=== PATIENT | male | born 1940 | race Caucasian/White ===

== ENCOUNTER 2023-12-12 12:52 | Outpatient (AMB) | payer MEDICARE, SELFPAY ==
--- NOTE | 2023-12-12 12:56 | A.OFFVIS_ITS ---
Intake Visit Reasons: benign neoplasm of bladder Intake Note: New Patient presents for initial visit for neoplasm of bladder Urology Medications: none Blood Thinner: warfarin Python Consultant Required: No Accompanied by: Self / Same As Patient Allergies levofloxacin Allergy (Verified 12/12/23 14:33) joint pain, swelling Medication List - Last Reconciled 12/12/23 by CHEPE Brown diazepam 5 mg PO DAILY PRN escitalopram oxalate 20 mg PO DAILY famotidine 40 mg PO DAILY pravastatin 80 mg PO DAILY prednisone 5 mg PO DAILY warfarin mg PO HPI Comments Details: Omi is a 83-year-old male patient of Dr. Fox. 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 He presents to the office today as a new patient for a history of bladder cancer. In discussion with the patient today he is extremely vague with previous previous urology history. However he discusses following up with previous urologist and being told he had something in his bladder however did not need to follow-up for 3-5 years. He discusses previous cystoscopy however does not recall much of previous history. When asked he does report urinary frequency however relates it to his increased p.o. intake and does not find it bothersome. He otherwise denies incontinence, nocturia, hematuria, dysuria, foul smelling urine, changes to urinary stream, flank pain, fever, and or chills. He is happy with his current voiding parameters. In office urinalysis results reviewed with the patient today microscopic hematuria noted. Discussed further workup to include CT urogram, urine cytology, and in office cystoscopy for further assessment evaluation. Patient discusses having had recent CT of the abdomen and pelvis and many other imaging at [facility] within the last 2-3 months. Discussed signing medical release form for continuity of care and to obtain radi ology results. When asked he does report a previous history smoking however states this was over 50 years ago in did not smoke many cigarettes daily. He otherwise offers no other issues or concerns at this time. 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, left wrist, 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, right wrist, without tophus (tophi) Rheumatoid arthritis, unspecified Paroxysmal tachycardia, unspecified Other specified heart block Hypertensive chronic kidney disease with stage 1 through stage 4 chronic kidney disease, or unspecified chronic kidney disease Male erectile dysfunction, unspecified Major depressive disorder, recurrent, moderate Nicotine dependence, cigarettes, in remission Mixed hyperlipidemia Vitamin D deficiency, unspecified Benign neoplasm of bladder Review of Systems Eyes Reports no additional complaints ENT Reports no additional complaints Card Reports as per HPI Resp Reports no additional complaints GI Reports no additional complaints Reports as per HPI Musc Reports no additional complaints Neuro Reports as per HPI Psych Reports as per HPI Endo Reports no additional complaints Catarino/Lymph Reports no additional complaints Aller/Immun Reports no additional complaints Physical Exam Const General: cooperative, comfortable, no acute distress, well developed, alert and awake Orientation/consciousness: patient oriented x3 Limitations: no limitations HEENT Head: Yes normal to inspection, Yes normocephalic and Yes atraumatic Ears: hearing grossly normal bilaterally Eyes General: appearance normal, both eyes and all related structures Neck Neck: Yes normal visual inspection and Yes trachea midline Chest Chest palpation & inspection: normal inspection of the chest Resp Effort & Inspection: normal respiratory effort and able to speak in complete sentences Cardio Rate: regular rate GI Inspection: Yes normal to inspection General: Yes no CVA tenderness Back/Spine/Pelvis Back: no CVA tenderness Skin General skin exam: no rashes or lesions noted Neuro General: patient oriented x3 Extrem General: Yes normal to inspection Psych Appearance: grossly normal and well kempt Mental Status: mental status grossly normal Speech and movement: Normal speech and movement present and Clear speech present Affect: normal affect Attitude: cooperative Thought process: Normal thought process present Thought content: Normal thought content present Insight: Fair insight present (Psych) Judgement: Fair judgement present (Psych) Results AMB Urinalysis, Automated UA Leukoctes 15 Nichole/uL Last Edit by Ara Gonzalez on 12/12/23 13:53 UA Nitrite Negative Last Edit by Ara Gonzalez on 12/12/23 13:53 UA Urobilinogen 0.2 mg/dL Last Edit by Ara Gonzalez on 12/12/23 13:53 UA Protein 30 mg/dL Last Edit by Ara Gonzalez on 12/12/23 13:53 UA pH 6.0 Last Edit by Ara Gonzalez on 12/12/23 13:53 UA Blood 10 Himanshu/uL Last Edit by Ara Gonzalez on 12/12/23 13:53 UA Specific [place] 1.020 Last Edit by Ara Gonzalez on 12/12/23 13:53 UA Ketone Positive Last Edit by Ara Gonzalez on 12/12/23 13:53 UA Bilirubin 1 mg/dL Last Edit by Ara Gonzalez on 12/12/23 13:53 UA Glucose 0 mg/dL Last Edit by Ara Gonzalez on 12/12/23 13:53 Results Reviewed Results Reviewed: Laboratory Last Values Urine pH (Auto) 6.0 12/12/23 13:52 Specific [place] (Auto) 1.020 12/12/23 13:52 Urine Protein (Auto) 30 mg/dL 12/12/23 13:52 Glucose (UA)(Auto) 0 mg/dL 12/12/23 13:52 Urine Ketones (Auto) Positive 12/12/23 13:52 Urine Blood (Auto) 10 Himanshu/uL 12/12/23 13:52 Urine Nitrite (Auto) Negative 12/12/23 13:52 Urine Bilirubin (Auto) 1 mg/dL 12/12/23 13:52 Urine Urobilinogen (Auto) 0.2 mg/dL 12/12/23 13:52 Leukocyte Esterase (Auto) 15 Nichole/uL 12/12/23 13:52 Assessment & Plan Assessment & Plan (1) Microscopic hematuria: Code(s): R31.29 - Other microscopic hematuria Category: Medical (2) History of nicotine dependence: Code(s): Z87.891 - Personal history of nicotine dependence Category: Medical Plan In office urinalysis results reviewed with the patient today; as noted above; will send for urine cytology. Medical release form signed will attempt to obtain previous CT records from [facility] Discussed at length potential causes of microscopic hematuria Discussed further microscopic hematuria workup; risks and benefits were discussed. Patient currently denies any bothersome urinary issues. He reports be happy with current voiding parameters. Will schedule for next available in office cystoscopy. Follow-up per doctor's orders; or sooner with any issues, concerns, and or qu estions. Orders: Orders AMB Urinalysis Automated Today Z13.9 - Encounter for screening, unspecified Urine Cytology Today R31.29 - Other microscopic hematuria Patient Instructions: The patient had an opportunity to ask questions regarding the treatment plan. All questions were answered. Physical exam, labs, and imaging were discussed and reviewed in detail. As well as risks, benefits, and discussion of treatment choices. No major barriers to understanding were identified. The patient expressed understanding and agreement with the above treatment plan. The patient was made aware they should contact our office by phone for worsening of their current condition, the appearance of new symptoms, or with any questions or concerns. Compliance is encouraged with any medications and follow up testing that is ordered. It is a privilege to be allowed the opportunity to participate in? your urological care.? Again, if you have any questions or concerns If you have any questions or concerns please do not hesitate to contact me. The office is [phone]. This note is constructed using voice recognition software. While every effort has been made to ensure accuracy church official errors may have been included. Yours sincerely, CHEPE Brown Coding Level of Care Code New Pt Level 3 (53727) Diagnoses Microscopic hematuria R31.29 History of nicotine dependence Z87.891
== END 2023-12-12 13:50 | disposition home or self-care (01) ==
PROVIDERS: PCP Internal Medicine; Visit Provider Nurse Practitioner Family
DX: R31.29 Other microscopic hematuria (principal); Z87.891 Personal history of nicotine dependence; Z13.9 Encounter for screening, unspecified
CPT/HCPCS: 99203

== ENCOUNTER 2023-12-12 12:52 | Outpatient (REF) | payer MEDICARE, SELFPAY ==
[2023-12-12 16:05] LABS: Urine Cytology See Pathology rpt
== END 2023-12-12 12:53 | disposition home or self-care (01) ==
LOC: HO.LNP 12:52
PROVIDERS: PCP Internal Medicine; Visit Provider Nurse Practitioner Family
DX: R31.29 Other microscopic hematuria (principal); Z87.891 Personal history of nicotine dependence
CPT/HCPCS: 81003; 88112; 99202

== ENCOUNTER 2024-03-26 09:59 | Outpatient (AMB) | payer MEDICARE, SELFPAY ==
--- NOTE | 2024-03-26 10:08 | MHC.OFFVIS ---
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 He is a patient of Dr. Fox. He is seen for the following urologic conditions - hematuria - erectile dysfunction Did have prior evaluation for hematuria a number of years ago Recent CT from [facility] reported as normal Cytology atypical cells Findings at cystoscopy - enlarged prostate with neovascularity Reassurance provided Bladder cancer superficial Previously managed in [place] - Prior smoking history Persistent microscopic hematuria Cytology atypical cells [facility] Medical History Panic disorder [episodic paroxysmal anxiety] Presence of prosthetic heart valve Personal history of colonic polyps 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 Nondisplaced fracture of base of third metacarpal bone, right hand, initial encounter for closed fracture Syncope and collapse Hematuria, unspecified Cyst of kidney, acquired Chronic kidney disease, stage 2 (mild) Idiopathic gout, 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, left wrist, 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, right wrist, without tophus (tophi) Rheumatoid arthritis, unspecified Paroxysmal tachycardia, unspecified Other specified heart block Hypertensive chronic kidney disease with stage 1 through stage 4 chronic kidney disease, or unspecified chronic kidney disease Male erectile dysfunction, unspecified Major depressive disorder, recurrent, moderate Nicotine dependence, cigarettes, in remission Mixed hyperlipidemia Vitamin D deficiency, unspecified Benign neoplasm of bladder Review of Systems Const Denies chills and Denies fever(s) Card Reports no additional complaints and Denies syncope Resp Denies cough GI Denies abdominal pain and Denies heartburn Reports as per HPI and Denies change in libido Neuro Denies syncope Psych Denies change in libido Endo Denies change in libido Physical Exam Const General: cooperative, healthy appearing, comfortable and no acute distress Orientation/consciousness: patient oriented x3 HEENT Face and sinus: Yes normal facial exam Mouth: moist mucous membranes Neck Neck: Yes normal visual inspection, Yes full ROM and Yes trachea midline Chest Chest palpation & inspection: normal inspection of the chest Resp Effort & Inspection: normal respiratory effort, able to speak in complete sentences and no respiratory distress GI Inspection: Yes normal to inspection Back/Spine/Pelvis Cervical Spine: normal cervical lordosis Thoracic/Lumbar Spine: thoracic and lumbar spine normal to inspection Skin General skin exam: no rashes or lesions noted Neuro General: patient oriented x3, gait normal, tone normal and moves all extremities Extrem General: Yes normal to inspection and Yes capillary refill normal Office Procedures Cystoscopy Consent Discussed risk and benefit or proposed procedure with the patient. Information consent for procedure given to the patient. Discussed technical aspects, risks, benefits and alternatives in full. Addressed all of the patient's questions and concerns regarding the procedure. The patient demonstrated knowledge and understanding. They wish to proceed with this procedure. Preparation The patient was prepped in the usual manner. A tractor crane engineer was present and in the room. Genitalia was prepped with betadine solution in a sterile manner. Lidocaine Jelly 2% was placed into the urethra and 16Fr flexible Olympus cystoscope was inserted into the meatus after adequate lubrication. Procedure Cystoscopy performed using a disposable Urovue digital 16 Macedonian cystoscope. 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 and bladder floor Bladder examination with retroflexion of cystoscope Bladder Orifices normal shape and position Bladder Capacity medium Trabeculations grade 2 Cellule Formation - Diverticulum Formation - Mucosal Erythema - Bladder Tumor - 98508-[id number] DISPOSABLE SCOPE URO-G FLEXIBLE SCOPE Procedure code (CPT) selection complete Office Meds lidocaine HCl 2 % mucosal jelly in applicator Performing Provider: Kristofer Wilburn MD [place] [facility] [place] [facility] Administered by: Kristofer Wilburn MD on 03/28/24 16:17 Dose Route Admin Location Dispensed Lot Number Expiration Date [facility] [place] Band Shover 10 mL intra-urethral 10 mL Results AMB Urinalysis, Automated UA Leukoctes 0 Nichloe/uL Last Edit by SALAZAR Linder on 03/26/24 10:24 UA Nitrite Negative Last Edit by SALAZAR Linder on 03/26/24 10:24 UA Urobilinogen 0.2 mg/dL Last Edit by SALAZAR Linder on 03/26/24 10:24 UA Protein 0 mg/dL Last Edit by SALAZAR Linder on 03/26/24 10:24 UA pH 6.0 Last Edit by SALAZAR Linder on 03/26/24 10:24 UA Blood 10 Himanshu/uL Last Edit by SALAZAR Linder on 03/26/24 10:24 UA Specific [place] 1.015 Last Edit by SALAZAR Linder on 03/26/24 10:24 UA Ketone Negative Last Edit by SALAZAR Linder on 03/26/24 10:24 UA Bilirubin 0 mg/dL Last Edit by SALAZAR Linder on 03/26/24 10:24 UA Glucose 0 mg/dL Last Edit by SALAZAR Linder on 03/26/24 10:24 Results Reviewed Results Reviewed: Laboratory Last Values Urine pH (Auto) 6.0 03/26/24 10:23 Specific [place] (Auto) 1.015 03/26/24 10:23 Urine Protein (Auto) 0 mg/dL 03/26/24 10:23 Glucose (UA)(Auto) 0 mg/dL 03/26/24 10:23 Urine Ketones (Auto) Negative 03/26/24 10:23 Urine Blood (Auto) 10 Himanshu/uL 03/26/24 10:23 Urine Nitrite (Auto) Negative 03/26/24 10:23 Urine Bilirubin (Auto) 0 mg/dL 03/26/24 10:23 Urine Urobilinogen (Auto) 0.2 mg/dL 03/26/24 10:23 Leukocyte Esterase (Auto) 0 Nichole/uL 03/26/24 10:23 Assessment & Plan Assessment & Plan (1) Microscopic hematuria: Code(s): R31.29 - Other microscopic hematuria Category: Medical Plan One year follow-up check UA Orders: Orders AMB Urinalysis Automated 03/26/24 Z13.9 - Encounter for screening, unspecified AMB Cystoscopy 03/26/24 R31.29 - Other microscopic hematuria Medications: New lidocaine HCl 2% 10 mL intra-urethral ONCE 10 mL 0RF R31.29 - Other microscopic hematuria Patient Instructions: Imaging studies, laboratory and physical exam results were discussed and reviewed in detail. No major barriers to patient understanding were identified. An opportunity to ask questions regarding the treatment plan was provided. All questions were answered. The patient expressed understanding and agreement with the above treatment plan. The patient is aware they should contact our office by phone for worsening of their current condition or the appearance of new urologic symptoms. Compliance is encouraged with any medications and followup testing that is ordered. It is a privilege to participate in the urologic care of your patient. If you have any questions or concerns regarding treatment for the above conditions, or other urologic issues, please do not hesitate to contact me. The office telephone contact is [phone]. This note is constructed using voice recognition software. While every effort has been made to ensure accuracy sizing machine operator errors may have been included. Yours sincerely, Dr Kristofer Wilburn MD, KAR[facility] - Urology Providers of Expert, Compassionate Care for the Genitourinary System Coding Level of Care Code Est Pt Level 3 (49790) Diagnoses Microscopic hematuria R31.29 CPT Codes Cystoscopy - CPT: 32413-[id number] ([id number])
--- OUTSIDE RECORDS SUMMARY | 2024-03-27 19:39 | XMS_ITS ---
Author Organization Crystal Fox MD Address [address] [place] [address] [phone] Care Team Providers Care Welder Apprentice Name Role Phone Crystal Fox Primary Care Provider REASON FOR VISIT referral GI Encounters Encounter Location Date Provider Diagnosis Crystal Fox MD [address] [place] [address] [place] [address] [phone] 01/30/2024 Crystal Fox Plan Of Treatment Next Appt Details Provider Name:Crystal Fox , 07/23/2024 11:30:00 AM, [address] [place] [address], [phone], Provider Name:Crystal Fox , 01/29/2025 11:00:00 AM, [address] [place] [address], [phone], Progress Notes * OSMEL SukhjindercarolDOB: 2 (83 yo M)Acc No.[id number]:01/30/2024 Patient:?Omi BOLIVAR :1940???Age:83 Y???Sex:Male Address:[facility] [place], [address] Subjective: * Chief Complaints: * ???referral GI * Medical History:? * Surgical History:? * Hospitalization/Major Diagno stic Procedure:? * Medications:? Objective: * Vitals:? Past Vitals:* 01/17/2024 Temp:98.7F, HR:86/min, BP:Si tting Right Arm: 120/70mm Hg, Wt:183lbs, BMI:24.82Index, Ht:6 ft, Oxygen sat %:98% * 10/09/2023 HR:102/min, BP:Sitting Right Arm:130/70mm Hg, Wt:186lbs, BMI:25.22Index, Ht:6 ft, Oxygen sat %:97% * 02/24/2023 Temp:97.1F, HR:103/min, BP: 140/82 mm Hg,Sitting Right Arm:122/78mm Hg, Wt:183.6lbs, BMI:24.90Index, Ht:6 ft, Oxygen sat %:96% * Physical Examination:? Assessment: Plan: * Treatment: * Procedure Codes:? * true * Date:? Generated for Kermit benitez/Paris/Olivia on:?03/27/2024 07:38 PM EST
--- OUTSIDE RECORDS SUMMARY | 2024-03-27 19:39 | XMS_ITS ---
Author Organization Crystal Fox MD Address [address] [place] [address] [phone] Care Team Providers Care Right Of Way Worker Name Role Phone Crystal Fox Primary Care Provider REASON FOR VISIT Coumadin Encounters Encounter Location Date Provider Diagnosis Crystal Fox MD [address] [place] [address] [place] [address] [phone] 03/21/2024 Crystal Fxo Plan Of Treatment Next Appt Details Provider Name:Crystal Fox , 07/23/2024 11:30:00 AM, [address] [place] [address], [phone], Provider Name:Crystal Fox , 01/29/2025 11:00:00 AM, [address] [place] [address], [phone], Progress Notes * Omi PINKDOB: 2 (83 yo M)Acc No.[id number]:03/21/2024 Patient:?OSMEL Omi :1940???Age:83 Y???Sex:Male Address:[place], [address] * true * Date:? Generated for Printi ng/Fachristineg/eTransmitting on:?03/27/2024 07:38 PM EST
--- OUTSIDE RECORDS SUMMARY | 2024-03-27 19:39 | XMS_ITS | Patient Health Record ---
Author Organization [facility] Address [address] [facility] [address] [place], [place] [id number] Care Team Providers Care Director Of Student Aid Name Role Phone [facility] Primary Care Provider Allergies Allergen (clinical drug ingredient) Drug/Non Drug Allergy documented on EMR Reaction Allergy Type Onset Date Status levofloxacin Levofloxacin Joint Pain, Swelling Drug Allergy Active Results Component Value Reference Range Notes HCV Antibody-[id number] Reviewed date:01/19/2024 01:54:37 PM Interpretation: Performing Lab:[facility] [place], [employer] [facility], Phone - [phone], Director - MDJarrelly Notes/Report: Hep C Virus Ab Non Reactive Non Reactive HCV antibody alone does not differentiate between previously resolved infection and active infection. Equivocal and Reactive HCV antibody results should be followed up with an HCV RNA test to support the diagnosis of active HCV infection. LP+Non-HDL Cholesterol-80078 5 Reviewed date:01/19/2024 01:54:37 PM Interpretation: Performing Lab:[facility] [place], [employer] [facility], Phone - [phone], Director - MDCodiedry Notes/Report: Cholesterol, Total 179 100-199 mg/dL Triglycerides 111 0-149 mg/dL HDL Cholesterol 63 >39 mg/dL VLDL Cholesterol Vinay 20 5-40 mg/dL LDL Chol Calc (NIH) 96 0-99 mg/dL Non-HDL Cholesterol 116 0-129 mg/dL Comp. Metabolic Panel (14)-3 Reviewed date:01/19/2024 01:54:37 PM Interpretation: Performing Lab:[facility] [place], [employer] [facility], Phone - [phone], Director - Parviny Notes/Report: Glucose 72 70-99 mg/dL BUN 18 8-27 mg/dL Creatinine 1.03 0.76-1.27 mg/dL eGFR 73 >59 mL/min/1.73 BUN/Creatinine Ratio 17 10-24 Sodium 138 134-144 mmol/L Potassium 4.2 3.5-5.2 mmol/L Chloride 101 96-106 mmol/L Carbon Dioxide, Total 25 20-29 mmol/L Calcium 9.2 8.6-10.2 mg/dL Protein, Total 6.6 6.0-8.5 g/dL Albumin 3.7 3.7-4.7 g/dL Globulin, Total 2.9 1.5-4.5 g/dL Bilirubin, Total 0.4 0.0-1.2 mg/dL Alkaline Phosphatase 67 44-121 IU/L AST (SGOT) 25 0-40 IU/L ALT (SGPT) 13 0-44 IU/L Albumin/Creatinine Ratio,Uri ne-[id number] Reviewed date:01/19/2024 01:54:37 PM Interpretation: Performing Lab:[facility], [address] [facility], Phone - [phone], Director - [facility] Notes/Report: Creatinine, Urine 102.8 Not Estab. mg/dL Albumin, Urine <3.0 Not Estab. ug/mL Alb/Creat Ratio <3 0-29 mg/g creat Normal: 0 - 29 Moderately increased: 30 - 300 Severely increased: >300 Vitamin D, 52-Kynuijn-999531 Reviewed date:01/19/2024 01:54:37 PM Interpretation: Performing Lab:[facility] [place], [address] [facility], Phone - [phone], Director - [facility] Notes/Report: Vitamin D, 25-Hydroxy 68.0 30.0-100.0 ng/mL Vitamin D deficiency has been defined by the Poth of Medicine and an Endocrine Society practice guideline as a level of serum 25-OH vitamin D less than 20 ng/mL (1,2). The Endocrine Society went on to further define vitamin D insufficiency as a level between 21 and 29 ng/mL (2). 1. IOM (Poth of Medicine). 2010. Dietary reference intakes for calcium and D. [place]: The National Academies Press. 2. Joanne MF, Jeni GALLEGOS, Art CISNEROS, et al. Evaluation, treatment, and prevention of vitamin D deficiency: an Endocrine Society clinical practice guideline. JCEM. 2010; 96(6):1911-30. Prostate-Specific Ag-[id number] Reviewed date:01/19/2024 01:54:37 PM Interpretation: Performing Lab:[facility] [place], [address] [place] [address], Phone - [phone], Director - Vaughn Notes/Report: Prostate Specific Ag 0.4 0.0-4.0 ng/mL Duglas ECLIA methodology. . According to the [place] [employer], Serum PSA should decrease and remain at undetectable levels after radical prostatectomy. The AUA defines biochemical recurrence as an initial PSA value 0.2 ng/mL or greater followed by a subsequent confirmatory PSA value 0.2 ng/mL or greater. Values obtained with different assay methods or kits cannot be used interchangeably. Results cannot be interpreted as absolute evidence of the presence or absence of malignant disease. CBC With Differential/Platel et-[id number] Reviewed date:01/19/2024 01:54:37 PM Interpretation: Performing Lab:[facility] [place], [address] [facility], [place], Phone - [phone], Director - Vaughn Notes/Report: WBC 8.4 3.4-10.8 x10E3/uL RBC 4.87 4.14-5.80 x10E6/uL Hemoglobin 14.1 13.0-17.7 g/dL Hematocrit 44.4 37.5-51.0 % MCV 91 79-97 fL MCH 29.0 26.6-33.0 pg MCHC 31.8 31.5-35.7 g/dL RDW 13.7 11.6-15.4 % Platelets 260 150-450 x10E3/uL Neutrophils 77 Not Estab. % Lymphs 13 Not Estab. % Monocytes 9 Not Estab. % Eos 1 Not Estab. % Basos 0 Not Estab. % Neutrophils (Absolute) 6.4 1.4-7.0 x10E3/uL Lymphs (Absolute) 1.1 0.7-3.1 x10E3/uL Monocytes(Absolute) 0.8 0.1-0.9 x10E3/uL Eos (Absolute) 0.1 0.0-0.4 x10E3/uL Baso (Absolute) 0.0 0.0-0.2 x10E3/uL Immature Granulocytes 0 Not Estab. % Immature Grans (Abs) 0.0 0.0-0.1 x10E3/uL Urinalysis, Complete-[id number] Reviewed date:01/19/2024 01:54:37 PM Interpretation: Performing [facility] [place], [address] [place] [address], Phone - [phone], Director - Vaughn Notes/Report: Specific [place] 1.016 1.005-1.030 pH 6.5 5.0-7.5 Urine-Color Yellow Yellow Appearance Clear Clear WBC Esterase Negative Negative Protein Negative Negative/Trace Glucose Negative Negative Ketones Negative Negative Occult Blood Negative Negative Bilirubin Negative Negative Urobilinogen,Semi-Qn 0.2 0.2-1.0 mg/dL Nitrite, Urine Negative Negative Microscopic Examination Micr oscopic follows if indicated. Microscopic Examination See below: Micr oscopic was indicated and was performed. WBC None seen 0 - 5 /hpf RBC 0-2 0 - 2 /hpf Epithelial Cells (non renal) None seen 0 - 10 /hpf Casts None seen None seen /lpf Bacteria None seen None seen/Few Uric Acid-[id number] Reviewed date:01/19/2024 01:54:37 PM Interpretation: Performing Lab:[facility] [place], Phone - [phone], Director - Vaughn Notes/Report: Uric Acid 4.9 3.8-8.4 mg/dL Therapeutic ta rget for gout patients: <6.0 Prothrombin Time (PT)-347918 Reviewed date:03/21/2024 04:55:29 PM Interpretation: Performing Lab:[facility] [place], Phone - [phone], Director - Parviny Notes/Report: INR 2.7 0.9-1.2 Reference interval is for non-anticoagulated patients. . Suggested INR therapeutic range for Vitamin K antagonist therapy: Standard Dose (moderate intensity therapeutic range): 2.0 - 3.0 Higher intensity therapeutic range 2.5 - 3.5 Prothrombin Time 27.6 9.1-12.0 sec Prothrombin Time (PT)-920212 Reviewed date:01/19/2024 01:54:37 PM Interpretation: Performing Lab:[facility] [place] [address] [facility], [place], Phone - [phone], Director - Vaughn Notes/Report: INR 3.3 0.9-1.2 Reference interval is for non-anticoagulated patients. . Suggested INR therapeutic range for Vitamin K antagonist therapy: Standard Dose (moderate intensity therapeutic range): 2.0 - 3.0 Higher intensity therapeutic range 2.5 - 3.5 Prothrombin Time 32.7 9.1-12.0 sec CITRULLINE PEPTIDE ANTIBODY Reviewed date:04/21/2023 04:17:48 PM Interpretation: Performing Lab:Testing performed or reported by [facility], a Service of [facility], [address] [place] [address] Remi Dave MD, Test Administrator [facility]# [id number] Notes/Report: CCP ANTIBODY 6 Reference range: 0 to 19 Unit: units (NOTE) Negative <20 Weak positive 20 - 39 Moderate positive 40 - 59 Strong positive >59 Test performed by [facility], [address] [place] [address] COMPLETE CBC WITH DIFF Reviewed date:04/21/2023 04:17:48 PM Interpretation: Performing Lab:Testing performed or reported by [facility], a Service of [facility], [address] [place] [address] Remi Dave MD, Test Administrator [facility]# [id number] Notes/Report: WBC 13.1 (4.0-11.0) K/MM3 RBC 5.30 (4.70-6.10) M/MM3 HGB 15.4 (13.7-17.1) GM/DL HCT 49.0 (40.5-50.0) % MCV 92.5 (80.0-94.0) FL MCH 29.1 (27.0-34.0) PG MCHC 31.4 (33.0-37.0) g/dL PLT 303 (150-460) K/MM3 RDW-SD 50.5 (<47.0) FL MPV 10.2 (9.4-12.4) FL AUTOMATED NRBC 0.0 ABS. NRBC 0.0 NEUT # 11.7 (1.3-7.0) K/MM3 LYMPH # 0.9 (0.8-3.1) K/MM3 MONO# 0.3 (0.4-1.3) K/MM3 EO # 0.0 (0.0-0.4) K/MM3 BASO # 0.0 (0.0-0.1) K/MM3 ABS. IMM GRAN 0.1 NEUT 89.9 (44-76) % LYMPH 6.7 (15-43) % MONOCYTE 2.5 (4.5-10.5) % EO 0.2 (0-6) % BASO 0.2 (0-2) % IMM GRAN 0.5 COMPREHENSIVE METABOLIC PANE L Reviewed date:04/21/2023 04:17:48 PM Interpretation: Performing Lab:Testing performed or reported by [facility], a Service of [facility], [address] [place] [address] Remi Dave MD, Test Administrator [facility]# [id number] Notes/Report: GLUCOSE 101 (70-99) MG/DL BUN 18 (8-23) MG/DL CREATININE 1.0 (0.7-1.2) MG/DL SODIUM 139 (133-145) MMOL/L POTASSIUM 5.2 (3.6-5.2) MMOL/L CHLORIDE 100 (98-107) MMOL/L BICARBONATE 31 (22-29) MMOL/L ANION GAP 8 (4-17) ALBUMIN 4.2 (3.4-4.8) GM/DL CALCIUM 9.6 (8.6-10.5) MG/DL BILIRUBIN,TOTAL 0.4 (0-1.2) MG/DL TOTAL PROTEIN 7.0 (6.2-8.2) GM/DL AG RATIO 1.5 AST 41 (0-40) U/L ALK PHOS 72 (40-129) U/L ALT 33 (0-41) U/L ESTIMATED GFR CREATININE 78 Creatinine based estimated glomerular filtration (eGFR) in adults is calculated using the National Kidney Foundation recommended 2020 CKD-EPI equation. Estimates GFR from serum creatinine, age and sex. C-REACTIVE PROTEIN Reviewed date:04/21/2023 04:17:48 PM Interpretation: Performing Lab:Testing performed or reported by [facility], a Service of [address] [address] Remi Dave MD, Test Administrator [facility]# [id number] Notes/Report: C-REACTIVE PROTEIN 0.3 (0-0.5) MG/DL RHEUMATOID FACTOR Reviewed date:04/21/2023 04:17:48 PM Interpretation: Performing Lab:Testing performed or reported by [facility], a Service of [facility], [address] [place] [address] Remi Dave MD, Test Administrator [facility]# [id number] Notes/Report: RHEUMATOID FACTOR 10.0 (<14) IU/ML MARII Reviewed date:04/21/2023 04:17:48 PM Interpretation: Performing Lab:Testing performed or reported by [facility], a Service of [facility], [address] [place] [address] Remi Dave MD, Test Administrator [place]# [id number] Notes/Report: ANTI-NUCLEAR ANTIBODY SCREEN NEGATIVE (NOTE) Negative <1:80 Borderline 1:80 Positive >1:80 ICAP nomenclature: AC-0 For more information about Hep-2 cell patterns use ANApatterns.org, the official website for the International Consensus on Antinuclear Antibody (MARII) Patterns (ICAP). Test performed by [facility], [address] [facility], [place] [address] DR Mcneil Routine 2 Views Reviewed date:11/14/2023 07:17:00 AM Interpretation: Performing Lab: Notes/Report: Original Ordering Provider: CRYSTAL IRVING MD [facility] Uric Acid-[id number] Reviewed date:11/14/2023 07:17:00 AM Interpretation: Performing Lab:[facility], [address] [place] [address], [place], Phone - [phone], Director - Vaughn Notes/Report: Uric Acid 3.7 3.8-8.4 mg/dL Therapeutic ta rget for gout patients: <6.0 Urinalysis, Complete-[id number] Reviewed date:11/14/2023 07:17:00 AM Interpretation: Performing Lab:[facility] [place], [address] [place] [address], [place], Phone - [phone], Director - Vaughn Notes/Report: Specific [place] 1.005 1.005-1.030 pH 6.5 5.0-7.5 Urine-Color Yellow Yellow Appearance Clear Clear WBC Esterase Negative Negative Protein Negative Negative/Trace Glucose Negative Negative Ketones Negative Negative Occult Blood Negative Negative Bilirubin Negative Negative Urobilinogen,Semi-Qn 0.2 0.2-1.0 mg/dL Nitrite, Urine Negative Negative Microscopic Examination Micr oscopic follows if indicated. Microscopic Examination See below: Micr oscopic was indicated and was performed. WBC None seen 0 - 5 /hpf RBC 0-2 0 - 2 /hpf Epithelial Cells (non renal) None seen 0 - 10 /hpf Casts None seen None seen /lpf Bacteria None seen None seen/Few CBC With Differential/Platel et-[id number] Reviewed date:11/14/2023 07:17:01 AM Interpretation: Performing Lab:[facility] [place], [address] [facility], Phone - [phone], Director - minerva Notes/Report: WBC 11.5 3.4-10.8 x10E3/uL RBC 4.95 4.14-5.80 x10E6/uL Hemoglobin 14.4 13.0-17.7 g/dL Hematocrit 46.2 37.5-51.0 % MCV 93 79-97 fL MCH 29.1 26.6-33.0 pg MCHC 31.2 31.5-35.7 g/dL RDW 13.0 11.6-15.4 % Platelets 343 150-450 x10E3/uL Neutrophils 88 Not Estab. % Lymphs 6 Not Estab. % Monocytes 3 Not Estab. % Eos 2 Not Estab. % Basos 0 Not Estab. % Neutrophils (Absolute) 10.1 1.4-7.0 x10E3/uL Lymphs (Absolute) 0.7 0.7-3.1 x10E3/uL Monocytes(Absolute) 0.4 0.1-0.9 x10E3/uL Eos (Absolute) 0.3 0.0-0.4 x10E3/uL Baso (Absolute) 0.0 0.0-0.2 x10E3/uL Immature Granulocytes 1 Not Estab. % Immature Grans (Abs) 0.1 0.0-0.1 x10E3/uL Sedimentation Rate-[place] n-[id number] Reviewed date:11/14/2023 07:17:01 AM Interpretation: Performing Lab:[facility] [place], [address] [facility], [place], Phone - [phone], Director - Vaughn Notes/Report: Sedimentation Rate-[place] 45 0-30 mm/hr C-Reactive Protein, Quant-00 6627 Reviewed date:11/14/2023 07:17:01 AM Interpretation: Performing Lab:[facility] [place], [address] [place] [address], Phone - [phone], Director - Vaughn Notes/Report: C-Reactive Protein, Quant 28 0-10 mg/L Vitamin D, 27-Nsppiqa-[id number] Reviewed date:11/14/2023 07:17:01 AM Interpretation: Performing Lab:[facility] [place], [address] [place] [address], Phone - [phone], Director - Vaughn Notes/Report: Vitamin D, 25-Hydroxy 61.1 30.0-100.0 ng/mL Vitamin D deficiency has been defined by the Poth of Medicine and an Endocrine Society practice guideline as a level of serum 25-OH vitamin D less than 20 ng/mL (1,2). The Endocrine Society went on to further define vitamin D insufficiency as a level between 21 and 29 ng/mL (2). 1. IOM (Poth of Medicine). 2010. Dietary reference intakes for calcium and D. [place]: The National Academies Press. 2. Joanne MF, Jeni [place], Art CISNEROS, et al. Evaluation, treatment, and prevention of vitamin D deficiency: an Endocrine Society clinical practice guideline. JCEM. 2010; 96(7):1911-30. Albumin/Creatinine Ratio,Uri ne-876300 Reviewed date:11/14/2023 07:17:01 AM Interpretation: Performing Lab:[facility] [place], [address] [place] [address], Phone - [phone], Director - Vaughn Notes/Report: Creatinine, Urine 48.7 Not Estab. mg/dL Albumin, Urine 6.1 Not Estab. ug/mL Alb/Creat Ratio 13 0-29 mg/g creat Normal: 0 - 29 Moderately increased: 30 - 300 Severely increased: >300 B-Type Natriuretic Peptide-1 52707 Reviewed date:11/14/2023 07:17:01 AM Interpretation: Performing Lab:[facility] [place], [address] [place] [address], Phone - [phone], Director - Vaughn Notes/Report: B-Type Natriuretic Peptide 92.2 0.0-100.0 pg/m L [employer]ens ADVIA Centaur XP methodology Comp. Metabolic Panel (14)-3 01800 Reviewed date:11/14/2023 07:17:01 AM Interpretation: Performing Lab:[facility] [place], [address] [facility], [place], Phone - [phone], Director - Vaughn Notes/Report: Glucose 94 70-99 mg/dL BUN 17 8-27 mg/dL Creatinine 0.98 0.76-1.27 mg/dL eGFR 77 >59 mL/min/1.73 BUN/Creatinine Ratio 17 10-24 Sodium 140 134-144 mmol/L Potassium 4.5 3.5-5.2 mmol/L Chloride 102 96-106 mmol/L Carbon Dioxide, Total 25 20-29 mmol/L Calcium 9.5 8.6-10.2 mg/dL Protein, Total 6.9 6.0-8.5 g/dL Albumin 3.6 3.7-4.7 g/dL Globulin, Total 3.3 1.5-4.5 g/dL Bilirubin, Total 0.4 0.0-1.2 mg/dL Alkaline Phosphatase 77 44-121 IU/L AST (SGOT) 24 0-40 IU/L ALT (SGPT) 14 0-44 IU/L PDF Report Reviewed date:11/14/2023 07:17:01 AM Interpretation: Performing Lab:[facility], [address], [place], Phone - [phone], Director - Vaughn Notes/Report: CT Chest WO Reviewed date:11/14/2023 07:17:00 AM Interpretation: Performing Lab: Notes/Report: Original Ordering Provider: CRYSTAL IRVING MD [facility] PROTIME PROFILE Reviewed date:04/21/2023 04:17:48 PM Interpretation: Performing Lab:Testing performed or reported by [facility], a Service of [facility], [address] [place] [address] Remi Dave MD, Test Administrator [facility]# [id number] Notes/Report: PROTIME 28.3 (9.2-11.4) SEC INTERNATNL NORMALIZED RATIO 2.9 (0.9-1.1) SUGGESTED VALUE OF 2.0-3.0 FOR PROPHYLAXIS OF VENOUS THROMBOSIS IN HIGH RISK OR SURGICAL PATIENTS, TREATMENT OF VENOUS THROMBOSIS, AND PREVENTION OF EMBOLISM. SUGGESTED VALUES OF 2.5-3.5 FOR PREVENTION OF RECURRENT EMBOLISM OR PATIENTS WITH MECHANICAL PROSTHETIC HEART VALVES. PDF Report Reviewed date:09/26/2023 08:31:50 AM Interpretation: Performing Lab:[facility] [place], [address] [facility], [place], Phone - [phone], Director - Vaughn Notes/Report: Prothrombin Time (PT)-632100 Reviewed date:09/26/2023 08:31:50 AM Interpretation: Performing Lab:[facility] [place], [address] [facility], [place], Phone - [phone], Director - Vaughn Notes/Report: INR 2.4 0.9-1.2 Reference interval is for non-anticoagulated patients. . Suggested INR therapeutic range for Vitamin K antagonist therapy: Standard Dose (moderate intensity therapeutic range): 2.0 - 3.0 Higher intensity therapeutic range 2.5 - 3.5 Prothrombin Time 24.0 9.1-12.0 sec PDF Report Reviewed date:07/20/2023 08:16:15 AM Interpretation: Performing Lab:[facility], [address] [place] [address], Phone - [phone], Director - Ashley Notes/Report: Prothrombin Time (PT)-159011 Reviewed date:07/20/2023 08:16:15 AM Interpretation: Performing Lab:[facility], [address] [place] [address], Phone - [phone], Director - Ashley Notes/Report: INR 3.1 0.9-1.1 Prothrombin Time 30.3 9.2-11.4 SEC Reason For Referral Reason faxed Diagnosis 1 Rheumatoid arthritis , unspecified (M06.9) Referral Organization [facility] Referring Provider First Name Crystal Referring Provider Last Name Ruddy Referring Provider Speciality Internal edicine Referred Provider Chriss Hernandez Referred Provider Specialty Rheumatology General Notes Ketty BAKER 09/15 08:45:30 AM >faxedOLIVIA Brooke R 09/29/2023 02:02:17 PM > refaxedOLIVIA Brooke R 10/05/2023 03:09:30 PM > [facility] patient Referral Priority Routine Referral Appointment Date 12/05/2023 Reason faxed Diagnosis 1 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) Referral Organization [facility] Referring Provider First Name Crystal Referring Provider Last Name Ruddy Referring Provider Speciality Internal M edicine Referred Provider Kristofer Wilburn Referred Provider Specialty Urology General Notes MICHELDAJAKetty William 09/16 10:49:33 AM >faxed, OLIVIAPauline Meredith 10/17/2023 02:52:35 PM >[phone] Meredith 11/02/2023 03:33:03 PM > LM ON VM, MICHELCASSYPauline Meredith 11/02/2023 03:38:11 PM > PATIENT HAS APPT 12/12/2023 AT 1;00 PM WITH JAMIL His first appointment he was a no show spoke to Hui Referral Priority Routine Referral Appointment Date 12/12/2023 Reason faxed Diagnosis 1 Personal history of adenomatous and serrated colon polyps (Z86.0101) Referral Organization [facility] Referring Provider First Name Crystal Referring Provider Last Name Ruddy Referring Provider Speciality Internal M edicine Referred Provider Mitch Stoner Referred Provider Specialty Gastroentero logy General Notes LOIVIAKetty 05/2023 01:37:56 PM >faxed Referral Priority Routine Medications Medication SIG (Take, Route, Frequency, Duration) Notes Start Date End Date Status Escitalopram Oxalate 20 MG Take 1 tablet by mouth once daily Orally Once a day for 30 days Active diazePAM 5 MG 1 tablet Orally Once a day for 30 days 03/07/2024 Active Pravastatin Sodium 80 MG Take 1 tablet b y mouth once daily Orally Once a day for 30 days Active Warfarin Sodium 5 MG Take 2 tablets by m out once daily for 76 Active Metoprolol Succinate ER 25 MG 1 tablet Orally Once a day for 90 days 10/24/2022 Active Amoxicillin 500 MG 4 capsule Orally Onc e a day for 1 dose 05/07/2021 Not-Taking Famotidine 40 MG Take 1 tablet by jacques th once daily for 30 days Active Immunizations Vaccine Route Administration Date Status Comme nts *Influenza, High Dose Seasonal, Quadrivatent Unknown 01/26/2022 Administered *Influenza, High Dose Seasonal, Quadrivatent IM Intramuscular 01/09/2023 Administered *Gjwmhkrzs-Jcgowxr-Adfx Dose-65+ IM Intramuscular 01/17/2024 Administered *PREVNAR 20 IM Intramuscular 01/17/2024 Administered COVID COMIRNATY Pfizer Unknown 04/25/2023 Administered COVID-19 Pfizer BiValent Booster Unknown 02/15/2022 Administered QLKQI-49-Zhqnvy Vaccine Unknown 08/12/2020 Administered DXQLI-47-Oegxns Vaccine Unknown 09/02/2020 Administered RVGZF-16-Opivkr Vaccine Unknown 03/05/2021 Administered Influenza IM Intramuscular 01/28/2016 Administered Influenza Unknown 01/07/2020 Administered Influenza (Fluad) Unknown 02/25/2021 Administered Noqpeklag-Nuzd-3902-2020-F lucelvax IM Intramuscular 01/21/2019 Administered Pneumococcal polysaccharide PCV 13 Unknown 06/26/2014 Administered Pneumococcal polysaccharide PPV23 Unknown 04/17/1998 Administered Pneumococcal polysaccharide PPV23 Unknown 08/27/2012 Administered Td (adult) preservative free Unknown 02/27/2012 Administered Td (adult) preservative free IM Intramuscular 12/29/2021 Administered Social History Tobacco Use: Social History Observation Description Date Details (start date - stop date) Never Smoker NA - NA AUDIT-C (Standard) Question Answer Notes Did you have a drink contain ing alcohol in the past year? Yes How often did you have six o r more drinks on one occasion in the past year? Less than monthly (1 point) How many drinks did you have on a typical day when you were drinking in the past year? 1 or 2 drinks (0 point) How often did you have a dri nk containing alcohol in the past year? 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 Problem Vitamin D deficiency (43044791) Vitamin D deficiency, unspecified (E55.9) Active confirmed Problem Mixed hyperlipidemia (307935263) Mixed hyperlipidemia (E78.2) Active confirmed Problem Tobacco user (019909856) Nicotine dependence, cigarettes, 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) Active confirmed Problem Moderate recurrent major depression (45181949) Major depressive disorder, recurrent, moderate (F33.1) Active confirmed Problem Psychosexual dysfunction associated with inhibited sexual excitement (937735928605794) Male erectile disorder (F52.21) Active confirmed Problem Chronic kidney disease due to hypertension (183111052587511) Hypertensive chronic kidney disease with stage 1 through stage 4 chronic kidney disease, or unspecified chronic kidney disease (I12.9) Active confirmed Problem Heart block (496029730) Other specified heart block (I45.5) Active confirmed Problem Paroxysmal tachycardia (98031371) Paroxysmal tachycardia, unspecified (I47.9) Active confirmed Problem Chronic gouty arthritis (66322500) Chronic gout due to renal impairment, right wrist, 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) Active confirmed Problem Chronic gouty arthritis (77491502) Chronic gout due to renal impairment, left wrist, without tophus (tophi) (M1A.3320) Active confirmed Problem Idiopathic gout (54238283) Idiopathic gout, 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) Active confirmed Problem Chronic kidney disease stage 2 (025566145) Chronic kidney disease, stage 2 (mild) (N18.2) Active confirmed Problem 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, 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) Active confirmed Problem Hematuria (73219192) Hematuria, unspecified (R31.9) Active confirmed Problem Syncope and collapse (586074381) Syncope and collapse (R55) Active confirmed Problem Nondisplaced fracture of base of third metacarpal bone, right hand, initial encounter for closed fracture (S62.342A) Active confirmed Problem 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 (718256676) 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) Active confirmed Problem History of heart valve repair with prosthesis (217848796552422) 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) Active confirmed Problem Panic disorder (220029692) Panic disorder [episodic paroxysmal anxiety] (F41.0) Active confirmed Problem Vascular dementia, mild, with mood disturbance (F01.A3) Active confirmed Problem Ventricular tachycardia (disorder) (17599292) Ventricular tachycardia, unspecified (I47.20) Active confirmed Problem Aneurysm of ascending aorta (disorder) (324561934) Aneurysm of the ascending aorta, without rupture (I71.21) Active confirmed Problem Personal history of adenomatous and serrated colon polyps (Z86.0101) Active confirmed Problem Rheumatoid arthritis (01860511) Rheumatoid arthritis without rheumatoid factor, multiple sites (M06.09) Inactive confirmed Problem COVID19 JUAN-Viru s Identified (U07.1) Problem resolved confirmed Vital Signs Heart Rate 86 /min 01/17/2024 Temperature 98.7 degrees Fahrenheit 01/17/2024 Oximetry 98 % 01/17/2024 Blood pressure diastolic 70 mm Hg 01/17/2024 Height 6 ft in 01/17/2024 Blood pressure systolic 120 mm Hg 01/17/2024 Weight 183 lbs 01/17/2024 BMI 24.82 kg/m2 01/17/2024 Encounters Encounter Location Date Provider Diagnosis Crystal Irving MD [address] [id number] 05/29/2023 Crystal Irving MD [address] [id number] 10/09/2023 Crystal Irving Hypertensive chronic kidney disease with stage 1 through stage 4 chronic kidney disease, or unspecified chronic kidney disease I12.9 ; Chronic kidney disease, stage 2 (mild) N18.2 ; Panic disorder [episodic paroxysmal anxiety] F41.0 ; Major depressive disorder, recurrent, moderate F33.1 ; Aneurysm of the ascending aorta, without rupture I71.21 ; Mixed hyperlipidemia E78.2 ; Presence of prosthetic heart valve Z95.2 ; 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 ; Vitamin D deficiency, unspecified E55.9 ; Nicotine dependence, cigarettes, 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 and Rheumatoid arthritis without rheumatoid factor, multiple sites M06.09 Crystal Irving MD [address] [id number] 01/17/2024 Crystal Irving Hypertensive chronic kidney disease with stage 1 through stage 4 chronic kidney disease, or unspecified chronic kidney disease I12.9 ; Encounter for general adult medical examination without abnormal findings Z00.00 ; Chronic kidney disease, stage 2 (mild) N18.2 ; Panic disorder [episodic paroxysmal anxiety] F41.0 ; Major depressive disorder, recurrent, moderate F33.1 ; Aneurysm of the ascending aorta, without rupture I71.21 ; Presence of prosthetic heart valve Z95.2 ; 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 ; Mixed hyperlipidemia E78.2 ; Personal history of adenomatous and serrated colon polyps Z86.0101 ; Nicotine dependence, cigarettes, 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 ; Vitamin D deficiency, unspecified E55.9 ; Encounter for screening for malignant neoplasm of colon Z12.11 ; Encounter for screening for malignant neoplasm of prostate Z12.5 ; Encounter for screening for cardiovascular disorders Z13.6 ; Encounter for antibody response examination Z01.84 ; Encounter for immunization Z23 ; Encounter for screening for other viral diseases Z11.59 ; Low back pain, unspecified M54.50 and Chronic gout due to renal impairment, left wrist, 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 Crystal Irving MD [address] [place] [address] [id number] 03/30/2023 Crystal Irving Acute cough R05.1 Crystal Irving MD [address] [place] [address] [id number] 04/13/2023 Crystal Irving Presence of prosthet ic heart valve Z95.2 Crystal Irving MD [address] [place] [address] [id number] 04/13/2023 Crystal Irving MD [address] [place] [address] [id number] 04/20/2023 Crystal Irving MD [address] [place] [address] [id number] 05/10/2023 Crystal Irving MD [address] [place] [address] [id number] 06/12/2023 Crystal Irving MD [address] [place] [address] [id number] 06/14/2023 Crystal Irving MD [address] [place] [address] [id number] 06/22/2023 Crystal Irving MD [address] [place] [address] [id number] 07/20/2023 Crystal Irving MD [address] [place] [address] [id number] 07/27/2023 Crystal Irving MD [address] [place] [address] [id number] 09/11/2023 Crystal Irving MD [address] [place] [address] [id number] 09/25/2023 Crystal Irving Rheumatoid arthritis , unspecified M06.9 Crystal Irving MD [address] [place] [address] [id number] 09/26/2023 Crystal Irving MD [address] [place] [address] [id number] 11/10/2023 Crystal Irving MD [address] [facility] [address] [place] [address] [id number] 11/13/2023 Crystal Irving MD [address] [facility] [address] [place] [address] [id number] 12/12/2023 Crystal Irving MD [address] [id number] 01/19/2024 Crystal Irving MD [address] [id number] 01/30/2024 Crystal Irving MD [address] [id number] 02/29/2024 Crystal Irving MD [address] [id number] 03/21/2024 Crystal Irving Assessments Encounter Date Diagnosis (ICD Code) Assessment Notes Treatment Notes Treatment Clinical Notes Section Notes 03/30/2023 Acute cough (ICD-10 - R05.1) 09/25/2023 Rheumatoid arthritis, unspecified (ICD-10 - M06.9) 01/17/2024 Hypertensive chronic kidney disease with stage 1 through stage 4 chronic kidney disease, or unspecified chronic kidney disease (ICD-10 - I12.9) He is off his EVELIO inhibitor and his blood pressure is stable. Can continue to monitor. 01/17/2024 Encounter for general adult medical examination without abnormal findings (ICD-10 - Z00.00) General healthcare up-to-date. Check routine labs. Health care proxy and MOLST form package given for review and completion 10/09/2023 Hypertensive chronic kidney disease with stage 1 through stage 4 chronic kidney disease, or unspecified chronic kidney disease (ICD-10 - I12.9) Stable at present. Continue current therapy 10/09/2023 Chronic kidney disease, stage 2 (mild) (ICD-10 - N18.2) Stable estimated GFR in the 80s. 04/13/2023 Presence of prosthetic heart valve (ICD-10 - Z95.2) 10/09/2023 Panic disorder [episodic paroxysmal anxiety] (ICD-10 - F41.0) Not ideally controlled. He has not had behavioral health. He does not feel he needs behavioral health therapy. 01/17/2024 Chronic kidney disease, stage 2 (mild) (ICD-10 - N18.2) Stable estimated GFR in the 80s. Continue control comorbidity of hypertension 01/17/2024 Panic disorder [episodic paroxysmal anxiety] (ICD-10 - F41.0) Fair control at present. Ideally he should have combination therapy but he finds combination therapy cost prohibitive. 10/09/2023 Major depressive disorder, recurrent, moderate (ICD-10 - F33.1) Fair control. As above. He does not wish to have adjunct therapy added onto his current medical therapy due to cost issues. 10/09/2023 Aneurysm of the ascending aorta, without rupture (ICD-10 - I71.21) It appears he did not get his CT of the chest last year. Recommend CT angiogram of the chest to evaluate his aortic aneurysm. 01/17/2024 Major depressive disorder, recurrent, moderate (ICD-10 - F33.1) Fair control and as above. 01/17/2024 Aneurysm of the ascending aorta, without rupture (ICD-10 - I71.21) Stable on recent CAT scans. It is at 5.0 cm for this year. Continue to monitor on a periodic basis 10/09/2023 Mixed hyperlipidemia (ICD-10 - E78.2) Fair control on prior labs as reviewed. 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 He is cystoscopy is still pending. 10/09/2023 Benign neoplasm of bladder (ICD-10 - D30.3) He has not followed up with urology as of yet still. Recommend urology follow-up to verify that there is no recurrence and need for repeat cystoscopy 10/09/2023 Vitamin D deficiency, unspecified (ICD-10 - E55.9) Fair control on prior labs as reviewed 01/17/2024 Mixed hyperlipidemia (ICD-10 - E78.2) Stable on prior labs reviewed. His LDL is less than 100 which is reasonable at this point. 01/17/2024 Personal history of adenomatous and serrated colon polyps (ICD-10 - Z86.0101) He has not had his follow-up colonoscopy. Recommend follow-up colonoscopy 10/09/2023 Nicotine dependence, cigarettes, in remission (ICD-10 - F17.211) Remains in remission 10/09/2023 Rheumatoid arthritis without rheumatoid factor, multiple sites (ICD-10 - M06.09) He has recurrent pain including back pain which is probably more arthritic in etiology. He still has edema and effusions in his wrist. Continue prednisone therapy pending rheumatology evaluation and recheck labs 01/17/2024 Nicotine dependence, cigarettes, in remission (ICD-10 - F17.211) Remains in remission 01/17/2024 Vitamin D deficiency, unspecified (ICD-10 - E55.9) Fair control and prior labs reviewed. Recheck status and would recommend vitamin D supplementation for goal level of 30+ and if possible 50+ 01/17/2024 Encounter for screening for malignant neoplasm of colon (ICD-10 - Z12.11) Due for colon cancer screening 01/17/2024 Encounter for screening for malignant neoplasm of prostate (ICD-10 - Z12.5) Can check PSA has prostate cancer screening realizing the limitation of this test as a screening test 01/17/2024 Encounter for screening for cardiovascular disorders (ICD-10 - Z13.6) Blood pressure is stable. Can check for comorbidity of hyperlipidemia and hyperglycemia to further assess risk. 01/17/2024 Encounter for antibody response examination (ICD-10 - Z01.84) He would be considered immune to rubeola by virtue of his age 1001/17/2024 Encounter for immunization (ICD-10 - Z23) Vaccines updated 01/17/2024 Encounter for screening for other viral diseases (ICD-10 - Z11.59) Can screen for hepatitis C as per general recommendation 01/17/2024 Low back pain, unspecified (ICD-10 - M54.50) He has some mild right lower back pain after lifting a couch. 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 However his uric acid used to be elevated and he is off allopurinol now. Can recheck levels and if these are significantly elevated he may benefit from primary prophylactic therapy. 01/17/2024 Other This note was created with voice dictation recognition software and may contain errors of grammar and syntax. Also labs were reviewed with patient. Plan Of Treatment Pending Test Test Name Order Date Prothrombin Time with INR (PT/INR) 10/25 25OH VITAMIN D 07/03/2017 COMPREHENSIVE METABOLIC PANEL 07/03/2017 CYTOLOGY (NON-ANATOMIC PATHOLOGY MANAGER) 12/26/2017 PROTIME PROFILE 03/18/2022 TESTOSTERONE 12/26/2017 US Carotid Duplex Bilat Complt 3 CT Chest WO 01/09/2023 HOLTER MONITOR, 15 DAYS, APPLICATION 02/2023 HOLTER MONITOR, 15 DAYS, INTERPRETATION 08/26/2022 XR Chest 03/30/2023 Future Test Test Name Order Date PROTIME PROFILE 12/10/2018 PROTIME PROFILE 12/17/2018 PROTIME PROFILE 12/24/2018 PROTIME PROFILE 12/31/2018 PROTIME PROFILE 01/07/2019 PROTIME PROFILE 01/14/2019 PROTIME PROFILE 01/28/2019 PROTIME PROFILE 02/04/2019 PROTIME PROFILE 03/04/2019 PROTIME PROFILE 03/11/2019 PROTIME PROFILE 03/18/2019 PROTIME PROFILE 04/01/2019 PROTIME PROFILE 04/08/2019 PROTIME PROFILE 04/15/2019 PROTIME PROFILE 04/22/2019 PROTIME PROFILE 07/01/2019 PROTIME PROFILE 07/15/2019 PROTIME PROFILE 07/22/2019 PROTIME PROFILE 07/29/2019 PROTIME PROFILE 08/05/2019 PROTIME PROFILE 08/12/2019 PROTIME PROFILE 12/18/2019 PROTIME PROFILE 12/25/2019 PROTIME PROFILE 01/08/2020 PROTIME PROFILE 01/15/2020 PROTIME PROFILE 01/22/2020 PROTIME PROFILE 02/05/2020 PROTIME PROFILE 02/12/2020 PROTIME PROFILE 02/19/2020 PROTIME PROFILE 02/26/2020 PROTIME PROFILE 03/04/2020 PROTIME PROFILE 03/11/2020 PROTIME PROFILE 03/18/2020 PROTIME PROFILE 04/01/2020 PROTIME PROFILE 04/08/2020 PROTIME PROFILE 04/15/2020 PROTIME PROFILE 04/29/2020 PROTIME PROFILE 05/06/2020 PROTIME PROFILE 05/13/2020 PROTIME PROFILE 05/20/2020 PROTIME PROFILE 05/27/2020 PROTIME PROFILE 06/03/2020 PROTIME PROFILE 06/10/2020 PROTIME PROFILE 06/24/2020 PROTIME PROFILE 07/01/2020 PROTIME PROFILE 07/08/2020 PROTIME PROFILE 07/15/2020 PROTIME PROFILE 07/22/2020 PROTIME PROFILE 07/29/2020 PROTIME PROFILE 08/12/2020 PROTIME PROFILE 08/19/2020 PROTIME PROFILE 01/05/2021 PROTIME PROFILE 01/19/2021 PROTIME PROFILE 01/26/2021 PROTIME PROFILE 02/02/2021 PROTIME PROFILE 02/09/2021 PROTIME PROFILE 02/16/2021 PROTIME PROFILE 02/23/2021 PROTIME PROFILE 03/02/2021 PROTIME PROFILE 03/09/2021 PROTIME PROFILE 03/25/2022 PROTIME PROFILE 04/01/2022 PROTIME PROFILE 04/08/2022 PROTIME PROFILE 04/15/2022 PROTIME PROFILE 04/22/2022 PROTIME PROFILE 04/29/2022 PROTIME PROFILE 05/13/2022 PROTIME PROFILE 05/20/2022 PROTIME PROFILE 05/27/2022 PROTIME PROFILE 06/03/2022 PROTIME PROFILE 06/17/2022 PROTIME PROFILE 06/24/2022 PROTIME PROFILE 07/01/2022 PROTIME PROFILE 07/08/2022 PROTIME PROFILE 07/15/2022 PROTIME PROFILE 07/29/2022 PROTIME PROFILE 08/05/2022 PROTIME PROFILE 08/12/2022 PROTIME PROFILE 08/19/2022 PROTIME PROFILE 09/02/2022 PROTIME PROFILE 09/09/2022 PROTIME PROFILE 09/16/2022 PROTIME PROFILE 09/23/2022 PROTIME PROFILE 09/30/2022 PROTIME PROFILE 10/07/2022 PROTIME PROFILE 10/14/2022 PROTIME PROFILE 10/21/2022 PROTIME PROFILE 10/28/2022 PROTIME PROFILE 11/04/2022 PROTIME PROFILE 11/11/2022 PROTIME PROFILE 11/18/2022 PROTIME PROFILE 12/02/2022 PROTIME PROFILE 12/09/2022 PROTIME PROFILE 12/16/2022 PROTIME PROFILE 12/30/2022 PROTIME PROFILE 01/13/2023 PROTIME PROFILE 01/20/2023 PROTIME PROFILE 01/27/2023 PROTIME PROFILE 02/03/2023 PROTIME PROFILE 02/10/2023 PROTIME PROFILE 02/17/2023 PROTIME PROFILE 03/03/2023 PROTIME PROFILE 03/10/2023 PROTIME PROFILE 03/17/2023 PROTIME PROFILE 04/20/2023 PROTIME PROFILE 04/27/2023 PROTIME PROFILE 05/04/2023 PROTIME PROFILE 05/11/2023 PROTIME PROFILE 05/18/2023 PROTIME PROFILE 05/25/2023 PROTIME PROFILE 06/01/2023 PROTIME PROFILE 06/08/2023 PROTIME PROFILE 06/15/2023 PROTIME PROFILE 06/22/2023 PROTIME PROFILE 06/29/2023 PROTIME PROFILE 07/06/2023 PROTIME PROFILE 07/13/2023 PROTIME PROFILE 07/20/2023 PROTIME PROFILE 07/27/2023 PROTIME PROFILE 08/03/2023 PROTIME PROFILE 08/10/2023 PROTIME PROFILE 08/17/2023 PROTIME PROFILE 08/24/2023 PROTIME PROFILE 08/31/2023 PROTIME PROFILE 09/07/2023 PROTIME PROFILE 09/14/2023 PROTIME PROFILE 09/21/2023 PROTIME PROFILE 09/28/2023 PROTIME PROFILE 10/05/2023 PROTIME PROFILE 10/12/2023 PROTIME PROFILE 10/19/2023 PROTIME PROFILE 10/26/2023 PROTIME PROFILE 11/02/2023 PROTIME PROFILE 11/09/2023 PROTIME PROFILE 11/16/2023 PROTIME PROFILE 11/23/2023 PROTIME PROFILE 11/30/2023 PROTIME PROFILE 12/07/2023 PROTIME PROFILE 12/14/2023 PROTIME PROFILE 12/21/2023 PROTIME PROFILE 12/28/2023 PROTIME PROFILE 01/04/2024 PROTIME PROFILE 01/11/2024 PROTIME PROFILE 01/18/2024 PROTIME PROFILE 01/25/2024 PROTIME PROFILE 02/01/2024 PROTIME PROFILE 02/08/2024 PROTIME PROFILE 02/15/2024 PROTIME PROFILE 02/22/2024 PROTIME PROFILE 02/29/2024 PROTIME PROFILE 03/07/2024 PROTIME PROFILE 03/14/2024 PROTIME PROFILE 03/21/2024 Next Appt Details Provider Name:Crystal Irving , 07/23/2024 11:30:00 AM, [address] [place] [address], [phone], Provider Name:Crystal Irving , 01/29/2025 11:00:00 AM, [address] [place] [address], [phone], Insurance Providers Payer Name Payer Address Payer Phone Subscriber Number Group Number Insured Name Patient Relationship to Insured Coverage Start Date Coverage End Date MEDICARE [address] JIMMY HENDERSON [phone] [id number] Omi Pink Self - patient is the insured Medical (General) History Medical History History ICD Code Nonrheumatic aortic (valve) stenosis Presence of prosthetic heart valve Panic disorder [episodic paroxysmal anxi ety] without agoraphobia Chronic kidney disease, stage 3 (moderat e) Personal history of colonic polyps 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
--- OUTSIDE RECORDS SUMMARY | 2024-03-27 19:39 | XMS_ITS ---
Author Organization Crystal Fox MD Address [address] [place] [address] [phone] Care Team Providers Care Ep Specialist Name Role Phone Crystal Fox Primary Care Provider Allergies Allergen (clinical drug ingredient) Drug/Non Drug Allergy documented on EMR Reaction Allergy Type Onset Date Status levofloxacin Levofloxacin Joint Pain, Swelling Drug Allergy Active REASON FOR VISIT Clinical call Medications Medication SIG (Take, Route, Frequency, Duration) Notes Start Date End Date Status Metoprolol Succinate ER 25 MG 1 tablet Orally Once a day for 90 days 10/24/2022 Active Encounters Encounter Location Date Provider Diagnosis Crystal Fox MD [address] [place] [address] [phone] 02/29/2024 Crystal Fox Plan Of Treatment Medication Medication Name Sig Start Date Stop Date Notes Metoprolol Succinate ER 25 MG 1 tablet O rally Once a day for 90 days 10/24/2022 Next Appt Details Provider Name:Crystal Fox , 07/23/2024 11:30:00 AM, [address] [place] [address], [phone], Provider Name:Crystal Fox , 01/29/2025 11:00:00 AM, [address] [place] [address], [phone], Progress Notes * Omi PINKDOB: [birth year] (83 yo M)Acc No.[id number]:02/29/2024 Patient:?Omi PINK :1940???Age:83 Y???Sex:Male [place], [address] * Refills? Refill Metoprolol Succinate ER Tablet Extended Release 24 Hour, 25 MG, Orally, 90 Tablet, 1 tablet, Once a day, 90 days, Refills=5 Subjective: * Chief Complaints: * ???Clinical call * Medical History:? * Surgical History:? * Hospitalization/Major Diagno stic Procedure:? * Medications:? * Allergies:?Levofloxacin: Iesha nt Pain, Swellingno[Allergies Verified] Objective: * Vitals:? Past Vitals:* 01/17/2024 Temp:98.7F, [...]
== END 2024-03-26 11:09 | disposition home or self-care (01) ==
PROVIDERS: PCP Internal Medicine; Visit Provider Urology
DX: Z13.9 Encounter for screening, unspecified (principal)

== ENCOUNTER → 2024-03-26 09:59 | Outpatient (BNVA) | payer MEDICARE, SELFPAY | PROVIDERS: PCP Internal Medicine; Visit Provider Urology | DX: R31.29 Other microscopic hematuria (principal); N52.9 Male erectile dysfunction, unspecified | CPT/HCPCS: 52000; 81003; 99212 ==